=== PATIENT | male | born 1980 | race Two or more races ===

== ENCOUNTER 2018-07-04 21:36 | Emergency (ER) | payer BC ==
[~2018-07-04] VITALS: Ht 185.4 cm; Wt 72.6 kg
--- NOTE | 2018-07-04 21:48 | NUR ---
Dr. Sosa at bedside for MSE.
[2018-07-04 22:56] VITALS: BP 100/69
== END 2018-07-04 22:57 | disposition home or self-care (01) ==
LOC: ER 21:39
DX: S16.1XXA Strain of muscle, fascia and tendon at neck level, initial encounter (principal); F17.200 Nicotine dependence, unspecified, uncomplicated; Z88.5 Allergy status to narcotic agent; Z90.49 Acquired absence of other specified parts of digestive tract; V59.49XA Driver of pick-up truck or van injured in collision with other motor vehicles in traffic accident, initial encounter; Y93.89 Activity, other specified; Y92.410 Unspecified street and highway as the place of occurrence of the external cause; Y99.8 Other external cause status
CPT/HCPCS: 72072; A4663

== ENCOUNTER 2020-07-22 20:46 | Emergency (ER) | payer BC ==
[~2020-07-22] VITALS: Ht 182.9 cm; Wt 63.5 kg
[2020-07-22] MEDS ORDERED: DIAZEPAM 2 MG TABLET PO ONE (21:30)
[2020-07-22] MEDS ORDERED: KETOROLAC TROMETHAMINE 60 MG INJ IM ONE ×2 (21:30→21:33)
[2020-07-22] MEDS ORDERED: DIAZEPAM 2 MG TABLET ONE (21:33)
[2020-07-22] MEDS ORDERED: DIAZEPAM 5 MG TABLET ONE ×2 (21:37→22:03)
[2020-07-22] MEDS ORDERED: FENTANYL CITRATE 100 MCG/2 ML AMPUL IM ONE (23:15)
[2020-07-22] MEDS ORDERED: FENTANYL CITRATE 100 MCG/2 ML AMPUL ONE (23:15)
[2020-07-22] MEDS ORDERED: IBUP-1955 PO (23:37)
[2020-07-22] MEDS ORDERED: TRAM50TA2 PO (23:37)
[2020-07-22 23:42] VITALS: BP 105/64
== END 2020-07-22 23:43 | disposition home or self-care (01) ==
LOC: ER 20:50
DX: M54.5 Low back pain (principal); G89.29 Other chronic pain; R03.0 Elevated blood-pressure reading, without diagnosis of hypertension
CPT/HCPCS: 96372 ×2; 99284; J1885; J3010; A4663

== ENCOUNTER 2021-07-28 00:04 | Emergency (ER) | payer BC ==
[~2021-07-28] VITALS: Ht 185.4 cm; Wt 73.5 kg
[~2021-07-28 00:04] MED LIST: IBUP-1955 PO; TRAM50TA2 PO
--- NOTE | 2021-07-28 00:10 | NUR ---
Came in ambulatory c/o pain L upper extremity. S/P L elbow surgery yesterday. To room 1B; seen and evaluated by Dr. Huerta.
--- NOTE | 2021-07-28 00:20 | NUR ---
L arm dressing removed; surgical site seen by Dr. Huerta. Area with swelling and bruising.
--- NOTE | 2021-07-28 01:20 | NUR ---
Bedside Duplex studies of LUE in progress.
--- NOTE | 2021-07-28 02:10 | NUR ---
Results of Duplex studies discussed by Dr. Huerta with patient. Verbalized understanding. LUE dressing applied, wrapped with Kerlix and meron bandage.
--- NOTE | 2021-07-28 02:15 | NUR ---
Patient discharged to home in stable condition. Written and verbal after care instructions given. Patient verbalizes understanding of instructions. Stressed follow up or return to ER for worsening s/s.
[2021-07-28 02:44] VITALS: BP 110/68
== END 2021-07-28 02:15 | disposition home or self-care (01) ==
LOC: ER 00:06
DX: S50.12XA Contusion of left forearm, initial encounter (principal); Y83.8 Other surgical procedures as the cause of abnormal reaction of the patient, or of later complication, without mention of misadventure at the time of the procedure; Y92.89 Other specified places as the place of occurrence of the external cause; Y99.8 Other external cause status; F17.210 Nicotine dependence, cigarettes, uncomplicated; Z88.6 Allergy status to analgesic agent
CPT/HCPCS: A4663

== ENCOUNTER 2022-05-10 20:28 | Emergency (ER) | payer BC ==
[~2022-05-10] VITALS: Ht 185.4 cm; Wt 72.6 kg
--- NOTE | 2022-05-10 21:15 | NUR ---
Dr. Huerta at bedside for MSE.
[2022-05-10 22:00] VITALS: BP 112/86
== END 2022-05-10 22:01 | disposition home or self-care (01) ==
LOC: ER 20:28
DX: S93.601A Unspecified sprain of right foot, initial encounter (principal); X50.9XXA Other and unspecified overexertion or strenuous movements or postures, initial encounter; Y93.66 Activity, soccer; Y92.89 Other specified places as the place of occurrence of the external cause; Z88.5 Allergy status to narcotic agent
CPT/HCPCS: 73630; A4663